=== PATIENT | female | born 1980 ===

== ENCOUNTER 2018-02-11 12:13 | Day surgery (SDC) | payer BC, OTHER ==
[2016-10-16 01:22] VITALS: BMI 36.3
[2018-02-11 12:50] VITALS: RESP 18
[2018-02-11] MEDS ORDERED: Lidocaine/Epinephrine 1% 1:100000 10 ML IJ ONE (13:00)
[2018-02-11 13:37] VITALS: BP 130/91; PULSE 99; TEMP 97; O2SAT 100
--- NOTE | 2018-02-11 13:40 | PCM.SURG1 ---
Surgeon's Initial Post Op Note - Surgeon's Notes Surgeon: Dr. Boothe Accident Examiner: Paty Aggarwal, PGY2. Lamont Valdez, OMS3 Type of Anesthesia: Local Pre-Operative Diagnosis: subcutaneous abscess over the sternum Operative Findings: purulent fluid in a cavity approximately 1cm deep Post-Operative Diagnosis: same Operation Performed: incision and drainage and debridement of pre-sternal subcutaneous abscess Specimen/Specimens Removed: wound culture Estimated Blood Loss: EBL {In ML}: 5 Blood Products Given: N/A Date of Surgery/Procedure: 02/11/18 Time of Surgery/Procedure: 13:00
--- NOTE | 2018-02-12 00:33 | OP ---
PROCEDURE DATE: 02/11/2018 PREOPERATIVE DIAGNOSIS: Abscess chest wall, between the breast. PROCEDURE CARRIED OUT: Incision and drainage with evacuation of infected sebaceous cyst. SURGEON: Garcia Boothe Jr., MD DIRECTOR AUTOMOTIVE: ANESTHESIOLOGIST: None. ANESTHESIA: 1% Xylocaine with epinephrine. INDICATIONS: A 37-year-old woman, abscess to the breast, nondiabetic. No fever. No chills. No tachycardia. OPERATIVE FINDINGS: We incised this, there was a large amount of wall that came out but segments to the wall remain, these are unable to be removed. After this had been done, we left the wound open and packed it up. Excellent hemostasis was obtained. A mildly compressive dressing applied. Operation carried out, incision and drainage drainage of infectious sebaceous cyst between the breasts. Garcia Boothe Jr., MD Name, M.D. (Insert Co-signer name using "Ctrl + Shift + I" window. Delete the co-signature block if not applicable.) cc:
== END 2018-02-11 13:37 | disposition home or self-care (01) ==
LOC: C.SDS 12:13 → C.OPSURG 12:13 → C.SDS 13:37
PROVIDERS: ATTEND Surgery Vascular Surgery
DX: L72.3 Sebaceous cyst (principal); Z88.2 Allergy status to sulfonamides